=== PATIENT | female | born 1970 | race Caucasian/White ===

== ENCOUNTER 2024-05-31 05:16 | Observation (INO) ==
--- NOTE | 2024-05-09 14:01 | PAT Medication Instructions ---
Medication Instructions Date of Service May 09, 2024 Home Medications amlodipine 10 mg tablet (Norvasc) 10 mg PO QAM aripiprazole 30 mg tablet (Abilify) 30 mg PO QAM atorvastatin 10 mg tablet (Lipitor) 10 mg PO QAM buspirone 10 mg tablet 10 mg PO BID dextroamphetamine-amphetamine 10 mg tablet (Adderall) 10 mg PO QPM dextroamphetamine-amphetamine 20 mg tablet (Adderall) 20 mg PO QAM glipizide 5 mg tablet 5 mg PO TID hydroxyzine HCl 25 mg tablet 25 mg PO TID PRN Anxiety lamotrigine 150 mg tablet (Lamictal) 300 mg PO QAM ondansetron HCl 4 mg tablet 4 mg PO Q6H PRN Nausea pantoprazole 40 mg tablet,delayed release 40 mg PO QAM sertraline 100 mg tablet (Zoloft) 200 mg PO QAM DO NOT take the morning of surgery dextroamphetamine-amphetamine 20 mg tablet (Adderall) 20 mg PO QAM glipizide 5 mg tablet 5 mg PO TID hydroxyzine HCl 25 mg tablet 25 mg PO TID PRN Anxiety Take morning of surgery With a small sip of water, OTHERWISE NOTHING TO EAT OR DRINK AFTER MIDNIGHT: amlodipine 10 mg tablet (Norvasc) 10 mg PO QAM aripiprazole 30 mg tablet (Abilify) 30 mg PO QAM atorvastatin 10 mg tablet (Lipitor) 10 mg PO QAM buspirone 10 mg tablet 10 mg PO BID lamotrigine 150 mg tablet (Lamictal) 300 mg PO QAM ondansetron HCl 4 mg tablet 4 mg PO Q6H PRN Nausea (if needed) pantoprazole 40 mg tablet,delayed release 40 mg PO QAM sertraline 100 mg tablet (Zoloft) 200 mg PO QAM Take evening before surgery buspirone 10 mg tablet 10 mg PO BID dextroamphetamine-amphetamine 10 mg tablet (Adderall) 10 mg PO QPM glipizide 5 mg tablet 5 mg PO TID hydroxyzine HCl 25 mg tablet 25 mg PO TID PRN Anxiety (if needed) ondansetron HCl 4 mg tablet 4 mg PO Q6H PRN Nausea (if needed) Other Notes If you have any questions please call us at [phone] or [phone] or [phone] or [phone]
--- NOTE | 2024-05-13 14:05 | Anesthesiology Consultation ---
Date of Service May 13, 2024 Assessment & Plan (1) Encounter for pre-operative examination: Plan - medical clearance 05/17/24: "...repeat CBC and ordered UA both pending ...medically cleared...pending satisfactory repeat WBC. Ordered UA...05/18/24: "...CLEARED for orthopedic surgery...with UA neg. and is afebrile with no complaints of sickness..." Will request repeat UA and CBC for chart completion. - leukocytosis and thrombocytosis, case discussed in detail with Dr. Gonzalez who advised patient have medical clearance. PCP clearance already scheduled tomorrow 05/17/24, Dr. Marinelli [facility]. PAT testing to be faxed to PCP. - check BSG am DOS. Chart Review Chart Review: Pending: Refer to Additional Notes / Consult section and Patient seen in Pre Admission Testing Teaching & Discussion Pre-Anesthesia Teaching/Discussion Notes: Instructed NPO after midnight before surgery, except medications with 15 cc of water. Medication instructions provided according to the PAT guidelines. History Surgery Operation Date: 05/31/24 07:00 Proposed Procedures p Right Reverse Total Shoulder Arthroplasty with Distal Clavicle Excision - Rober Tommy Minaya MD Height/Weight Height: 5 ft 11.5 in Weight: 94.6 kg Allergies Allergy/AdvReac Type Severity Reaction Status Date / Time tramadol AdvReac Intermediate Nausea Verified 05/13/24 14:13 Medications Home Medications Medication Instructions Recorded Confirmed Last Taken amlodipine 10 mg tablet (Norvasc) 10 mg PO QAM 05/09/24 05/09/24 Unknown aripiprazole 30 mg tablet (Abilify) 30 mg PO QAM 05/09/24 05/09/24 Unknown atorvastatin 10 mg tablet (Lipitor) 10 mg PO QAM 05/09/24 05/09/24 Unknown buspirone 10 mg tablet 10 mg PO BID 05/09/24 05/09/24 Unknown dextroamphetamine-amphetamine 10 10 mg PO QPM 05/09/24 05/09/24 Unknown mg tablet (Adderall) dextroamphetamine-amphetamine 20 20 mg PO QAM 05/09/24 05/09/24 Unknown mg tablet (Adderall) glipizide 5 mg tablet 5 mg PO TID 05/09/24 05/09/24 Unknown hydroxyzine HCl 25 mg tablet 25 mg PO TID PRN Anxiety 05/09/24 05/09/24 Unknown lamotrigine 150 mg tablet 300 mg PO QAM 05/09/24 05/09/24 Unknown (Lamictal) ondansetron HCl 4 mg tablet 4 mg PO Q6H PRN Nausea 05/09/24 05/09/24 Unknown pantoprazole 40 mg tablet,delayed 40 mg PO QAM 05/09/24 05/09/24 Unknown release sertraline 100 mg tablet (Zoloft) 200 mg PO QAM 05/09/24 05/09/24 Unknown Past Medical History Medical History ADHD Diabetes mellitus, type 2 NIDDM History of anxiety History of coma ~2022, [facility], "in coma for 4 days due to blood sugar of ~1500, had collapsed in PCP office and taken to hospital," f/u [facility] endocrinology, dr. townsend History of depression Hx of gastric ulcer (~2022) reason for protonix, "thinks she has one, but not sure" Hx of gastroesophageal reflux (GERD) controlled, stable per pt Hx of renal calculi Hyperlipidemia Hypertension controlled, stable per pt Patient denies h/o stroke, seizures, heart attack, heart failure, blood clots/DVTs or blood transfusions. Exercise / Class Metabolic Activity III < 4 Walking/Shop/Light housework (denies chest discomfort or shortness of breath with usual activities, less than 8 steps in home) Past Surgical History Surgical History History of esophagogastroduodenoscopy (EGD) History of open reduction and internal fixation (ORIF) procedure left ankle>hardware removed Hx laparoscopic cholecystectomy Hx of colonoscopy Hx of hand surgery rt and lt. Hx of lithotripsy Hx of shoulder surgery right x2 Hx of tonsillectomy as child Hx of total hysterectomy with removal of both tubes and ovaries S/P hardware removal left ankle Past Anesthesia History No Family Hx of Anesthesia Complications and Other (emotional after anesthesia) History of PONV No Hx of Motion Sickness and History of PONV (denies needing scop patch) Social History Smoking Status: Current every day smoker (-advised) Smoking cigarettes per day: 10 Do You Dip or Chew Tobacco: No Hx Alcohol Use: Yes Alcohol type: wine alcohol intake frequency: holidays/special occasions only Hx Substance Use: Yes substance use type: former substance user and marijuana (-advised) Last Used Substance Other:: occasional use, last use 05/08/24 Review of Systems Snoring, denies witnessed apneas. Patient denies chest pain, shortness of breath, dyspnea on exertion, fever, chills, cough, wheezing, or palpitations. Physical Exam Vital Signs Vitals BP 150/83 P 85 TEMP 98.6 SP02 98% on RA RESP 18 Physical Patient resting comfortably in chair in no acute distress, alert and oriented, responding appropriately throughout visit Full cervical extension range of motion without pain TMD 3.5 finger breadths Mallampati Score 3 Dentition: upper plate, denies chipped or loose teeth, caps/crowns, implants or bridges Cardiac: regular rate and rhythm, no murmurs noted Carotid arteries: negative bruit bilat Lab Results Anesthesia Preop Results Results Anesthesia Widget: WBC 12.58 K/ul (4.8-10.8) H 05/13/24 Hgb 13.4 g/dl (12.0-16.0) 05/13/24 Hct 40.6 % (37.0-47.0) 05/13/24 Plt 454 K/uL (130-400) H 05/13/24 PT 10.5 Seconds (9.0-12.0) 05/13/24 PTT 29 Seconds (21-31) 05/13/24 INR 1.0 (0.9-1.1) 05/13/24 Blood Type A Positive 05/13/24 Antibody Screen NEGATIVE 05/13/24 Testing Laboratory Results 04/18/24 SODIUM: 136 POTASSIUM: 4.9 CHLORIDE: 101 CO2: 29 BUN: 16 CREATININE: 1.4 GLUCOSE: 159 Alk phos: 128 AST: 30 ALT: 38 A1c: 6.6% Electrocardiogram Date: 05/13/24 NSR, rate 79 bpm Nonspecific T wave abnormality Prolonged QT Chest X-Ray Date: 05/13/24 No acute cardiopulmonary disease.
[2024-05-31] MEDS: LACTATED RINGER'S 1,000 ML IV SCH (06:00)
[2024-05-31] MEDS: Scopolamine 1 MG TDSY TD SCH ×2 (06:21→12:42)
[2024-05-31] MEDS: ACETAMINOPHEN 500 MG TAB PO SCH ×3 (06:21→13:59)
[2024-05-31] MEDS: CeleBREX 200 MG CAP PO SCH ×2 (06:22→12:41)
[2024-05-31] MEDS ORDERED: BUPIVACAINE 0.5 % 5 MG/1 ML PF 10ML VIAL ONE (06:29)
[2024-05-31] MEDS ORDERED: fentaNYL citrate PF 100 MCG/2 ML VIAL IV PRN (06:34)
[2024-05-31] MEDS ORDERED: ONDANSETRON INJ 2 MG/ML 2 ML VIAL IV PRN ×2 (06:34→10:53)
[2024-05-31] MEDS ORDERED: ATROPINE SULFATE 0.1 MG/ML 10ML SYR IV PRN (06:34)
[2024-05-31] MEDS ORDERED: ePHEDrine sulfate 50 MG/ML AMP IV PRN (06:34)
--- NOTE | 2024-05-31 06:37 | History & Physical Bridge Note ---
Date of Service May 31, 2024 History & Physical Bridge Note I have examined the patient, reviewed the History & Physical and in the interval since the performance of the History & Physical I have noted the following changes of clinical significance: no changes noted
[2024-05-31] MEDS ORDERED: SUGAMMADEX SODIUM 200 MG/2 ML VIAL IV ONE (06:38)
[2024-05-31] MEDS ORDERED: fentaNYL citrate PF 100 MCG/2 ML VIAL ONE (06:38)
[2024-05-31] MEDS ORDERED: ONDANSETRON INJ 2 MG/ML 2 ML VIAL ONE (06:38)
[2024-05-31] MEDS ORDERED: MIDAZOLAM HCL 1 MG/ML 2ML VIAL ONE ×2 (06:38→07:13)
[2024-05-31] MEDS ORDERED: DEXAMETHASONE SOD INJ 4 MG/ML VIAL ONE (06:38)
[2024-05-31] MEDS ORDERED: ROCURONIUM BROMIDE 10 MG/ML 5 ML VIAL IV ONE ×2 (06:38→07:48)
[2024-05-31] MEDS ORDERED: PROPOFOL IV EMULSION 10 MG/ML 20 ML VIAL IV ONE (06:38)
[2024-05-31] MEDS: TRANEXAMIC ACID 1,000 MG **IV Pre-op IV SCH (06:50)
[2024-05-31] MEDS: ceFAZolin 2000MG 2,000 MG/15 ML SYR IV SCH ×2 (07:12→15:22)
[2024-05-31] MEDS ORDERED: KETAMINE HCL 10MG/ML SYR ONE (07:13)
[2024-05-31] MEDS ORDERED: PHENYLEPHRINE 100MCG/ML 5ML SYR ONE (07:40)
[2024-05-31] MEDS ORDERED: PHENYLEPHRINE HCL 10 MG/ML VIAL ONE (08:19)
[2024-05-31] MEDS: TRANEXAMIC ACID 1,000 MG **IV Intra-op IV SCH (10:37)
[2024-05-31] MEDS: ROPIV 0.5% 246mg, Ketorolac 30mg, EPINEPHrine 0.5mg in NSS INFIL SCH (10:37)
--- NOTE | 2024-05-31 10:42 | Post Operative Brief Note ---
Immediate Post Op Note Date of Surgery May 31, 2024 Pre & Post Diagnosis Operation Date: 05/31/24 07:00 Pre-Op Diagnosis: Osteoarthritis Right Shoulder Post-Op Diagnosis: Osteoarthritis Right Shoulder, Retained orthopedic hardware I identified the patient and participated in the time-out.: Yes Procedure Operation Date: 05/31/24 07:00 Actual Procedures p Right Reverse Total Shoulder Arthroplasty with Distal Clavicle Excision, removal of retained orthopedic hardware(Right) - Rober Minaya MD Surgeon Rober Minaya MD [place] Operator C DO Nitza Estimated Blood Loss 100 Findings Consistent with Post-Op Diagnosis Fluids 1000 cc Specimens Right Humeral Head & Distal clavicle Anesthesia Type General Regional Complications none
--- NOTE | 2024-05-31 10:43 | Operative Report ---
Post Operative Report Pre & Post Diagnosis Operation Date: 05/31/24 07:00 Pre-Op Diagnosis: Osteoarthritis Right Shoulder Post-Op Diagnosis: Osteoarthritis Right Shoulder, Retained orthopedic hardware I identified the patient and participated in the time-out.: Yes Procedure Operation Date: 05/31/24 07:00 Actual Procedures p Right Reverse Total Shoulder Arthroplasty with Distal Clavicle Excision, removal of retained orthopedic hardware(Right) - Rober Minaya MD Surgeon Rober Minaya MD Film Tests Checker Karlie Goddard DO Estimated Blood Loss 100 Findings See Below Shoulder ROM Pre-op: FF 160 deg; Abd 160 deg; ER 10 deg; IR 40 deg Posterior half supraspinatus & complete infraspinatus retracted rotator cuff with acetabulization of the humeral head. Humeral head was deformed, inferior osteophytes, loss of articular cartilage of humeral head and glenoid. LHB was degenerative and within the groove. Shoulder ROM Post-op: FF 155 deg; Abd 155 deg; ER 20 deg; IR 60 deg Fluids 1000 cc Specimens Right Humeral Head & Distal clavicle Anesthesia Type General Regional Complications none Indications Patient is a 53-year-old female who developed right shoulder rotator cuff arthropathy after failed rotator cuff repair with pain and decreased mobility. I recommended that she undergo a right shoulder Reverse TSA. The patient understands the risks of the operation including bleeding, infection, re-operati on, damage to nerves and arteries, continued shoulder pain, shoulder stiffness, infection, and/or loosening of the components which may require additional surgery. The patient also understands the risks of heart attack, stroke, pulmonary embolus, and . The patient wished to proceed and the consent form was signed. Description of Procedure IMPLANTS: Arthrex Univers Revers Modular Glenoid System 1) Humeral Stem 10 Univers Reverse [place] Stem, with size 33 Right Offset Suture Cup at 135. 2) Humeral Liner 33, + 3 mm. 3) Glenoid Modular Baseplate 24 mm +2 Lateralization & Central Screw 10 x 25 mm. 4) Glenosphere 33 mm + 4 offset/ 24 mm. 5) Glenoid Locking screw 5.5 x 36 mm x 2. PROCEDURE: The patient was taken to the Operating Room and placed in the beach-chair position after administration of an interscalene block and general anesthesia. 2 g of intravenous Ancef were administered. The right shoulder was then prepped and draped in the standard sterile fashion. Sequential compression devices were placed in the legs. TXA 1 g was given pre-op and a second dose was given before prepping the humeral shaft. The patient was identified and a multidisciplinary time-out identified the right shoulder as the correct shoulder and operative limb. First, the coracoid, acromion, clavicle, AC joint, and planned deltopectoral incision were marked. The incision was anesthetized with 30 cc of joint cocktail at the end of the case. Sharp dissection was carried down to the deltopectoral interval. The cephalic vein was identified and protected laterally as was the deltoid. The deltopectoral interval was dissected to expose the clavipectoral fascia which was then incised. Blunt dissect was used to separate the deltoid from the remaining rotator cuff. A self-retaining shoulder retractor was placed beneath the conjoined tendon and deltoid muscle, exposing the subscapularis tendon. The superior 1cm of the Pec major was released. The biceps tendon was identified in its groove and had degeneration it was tenodesed to the Pec major tendon with #1 Vicryl. The biceps tendon was unroofed from its groove, and the rotator interval was split to the base of the coracoid and the biceps was released from the glenoid. The subscapularis was released by peeling. Next, the humeral head was dislocated by adducting, extending, and externally rotation and the capsulotomy was carried down all the way around to the posterior aspect of the humeral head, taking care to stay on bone. Any humeral osteophytes anterior, inferiorly were removed with a rongeur to identify the medial calcar on the humeral neck. The humeral intramedullary entry point was entered posterior to the bicipital groove with a 2.4mm guide pin, followed by 6 mm drill, and then IM reamer. The resection guide was attached to the IM reamer and pinned to the humeral head with desired resection of 135. The IM reamer was removed and the humeral head was resected in the standard fashion. The resection protector was placed over the humeral surface. Our attention was drawn to the glenoid. The humerus was retracted and displaced posteriorly. The labrum was circumferentially removed as was the anterior capsule, which was carefully dissected free from the subscapularis tendon. The glenoid was exposed with 90 deg Keri retractor superiorly, Wolf retractor anteriorly, and Tornier retractor posteriorly. The glenoid was prepped with curettes to remove any remaining cartilage. Using the specific VIP patient specific glenoid aiming guide for a 24 mm baseplate was used to place the 2.8 mm guide wire. The glenoid surface was prepped for the baseplate with the glenoid reamer. The modular central screw was prepped with cannulated 10 mm drill, then tapped to a depth of 25 mm. The baseplate with central screw was screwed into place flush to the glenoid. The inferior screw hole was drilled first followed by the superior screw and a locking screws were placed. The glenosphere was inserted onto the baseplate and locked into place in the standard fashion. The humerus was dislocated and humeral broaches 6 through 10 were sequentially placed in the humeral shaft until excellent fit. The metallic screw from her previous rotator cuff repair had to be removed in order to properly prep the humerus. The A/P position of the broach was checked. The offset reamer guide was placed. The humeral cup reamer prepped the remainder of the humerus. The 10 stem was impacted into place with excellent purchase was achieved. The humeral trial liner 3 mm was placed. The shoulder was reduced with excellent fit and good stability of 1+ translation anteriorly and posteriorly. The shoulder ROM showed improved motion noted above. The definitive humeral liner was then placed. The subscapularis was repaired through drill holes and the suture cup. The rotator interval was closed with #1 Vicryl. The ROM and stability was unchanged. Our attention was drawn to the AC joint and the extended incision was carried down to the Superior AC joint ligament. A longitudinal incision was made in- line with the fibers of the superior AC joint ligament. The posterior and an terior aspect of the clavicle was exposed and using a sagittal saw the distal 8 mm was removed. A rasp was used to smooth out the edges. The wound was copiously irrigated. Bone wax was placed along the exposed bone. There was adequate space. The pulsatile lavage was used to copiously irrigate the wound throughout the case. The Superior AC joint ligament was closed with 0 Vicryl. The deltopectoral interval was re-approximated with #1-Vicryl, the subcutaneous tissue was closed with 3-0 Vircyl, and the skin was closed with ZipLine and Shield. The wounds were dressed with sterile gauze, ABD, and Tegaderm. The patient was then transferred to the PACU in stable condition after application of an abduction sling. POST-OP: The patient will be admitted for observation overnight. Patient will be seen by PT/OT prior to discharge. Pain medicine will be used as needed. Continue abduction sling 4 weeks. I attest to the content of the Intraoperative Record and any orders documented therein. Any exceptions are noted below.
[2024-05-31] MEDS ORDERED: bisacodyL 10 MG SUPP PR PRN (10:53)
[2024-05-31] MEDS ORDERED: MAGNESIUM HYDROXIDE SUSP 30 ML UDC PO PRN (10:53)
[2024-05-31] MEDS ORDERED: METOCLOPRAMIDE HCL INJ 5 MG/ML 2 ML VIAL IV PRN (10:53)
[2024-05-31] MEDS ORDERED: NALOXONE HCL 0.4 MG/1 ML VIAL/CARP IV PRN (10:53)
[2024-05-31] MEDS ORDERED: diphenhydrAMINE 50 MG/ML VIAL IV PRN (10:57)
[2024-05-31] MEDS ORDERED: traMADol HCL 50 MG TABLET PO PRN (10:57)
[2024-05-31] MEDS ORDERED: ALUMINUM/MAGNESIUM SUSP 30 ML UDC PO PRN (10:57)
[2024-05-31] MEDS ORDERED: HYDROmorphone INJ 0.5 MG/0.5 ML SYR IV PRN (10:57)
[2024-05-31] MEDS ORDERED: hydrOXYzine HCl 25 MG TAB PO PRN (11:00)
--- NOTE | 2024-05-31 11:34 | XRay Report ---
XR shoulder RT min 2V routine CLINICAL HISTORY: Post shoulder surgery COMPARISON: None FINDINGS: Right shoulder prosthesis shows no hardware complication. There is expected soft tissue ga s. IMPRESSION: Unremarkable postoperative exam. ACT 112: Negative or not required by law. Electronically signed by: Sanjay Pang M.D. 05/31/2024 11:33 AM
[2024-05-31] MEDS ORDERED: ONDANSETRON 4 MG OD TAB PO PRN (11:52)
[2024-05-31] MEDS: INSULIN HUMAN REGULAR PER UNIT 3 UNITS in SYRINGE 2.97 ML IV STA (12:03)
[2024-05-31] MEDS: BUPIVACAINE LIPOSOME 1.3% 133 MG/10 ML VIAL ONE (12:42)
[2024-05-31] MEDS ORDERED: PHARMACY GLYCEMIC MGMT CONSULT PRN (12:45)
[2024-05-31] MEDS: KETOROLAC TROMETHAMINE 15 MG/ML VIAL IV SCH (12:49)
[2024-05-31] MEDS ORDERED: CARBOHYDRATES FOR HYPOGLYCEMIA PO PRN (13:00)
[2024-05-31] MEDS ORDERED: GLUCAGON FOR INJ 1 MG VIAL SQ PRN (13:00)
[2024-05-31] MEDS ORDERED: GLUCOSE 40% GEL 15 GM TUBE PO PRN (13:00)
[2024-05-31] MEDS ORDERED: DEXTROSE 50% 50 ML SYRINGE IV PRN (13:00)
[2024-05-31] MEDS ORDERED: GLUCOSE 10 TAB/TUBE PO PRN (13:00)
--- NOTE | 2024-05-31 13:03 | Anesthesiology Progress Note ---
Date of Service May 31, 2024 Anesthesia Post Procedure Vital Signs Vital Signs: Temp Pulse Pulse Pulse Resp BP Pulse Ox 05/31/24 13:00 37.1 C 77 16 129/74 99 05/31/24 12:30 36.8 C 85 17 126/70 96 05/31/24 12:10 77 16 122/67 95 05/31/24 12:00 36.8 C 86 22 129/64 95 05/31/24 11:50 72 16 114/60 94 05/31/24 11:40 76 14 121/67 96 05/31/24 11:30 75 16 124/62 97 05/31/24 11:20 36.7 C 82 14 145/70 H 95 05/31/24 05:44 36.9 C 66 17 159/80 H 97 O2 Del Method O2 Flow Rate 05/31/24 13:00 Nasal Cannula 2 05/31/24 12:30 Nasal Cannula 2 05/31/24 12:10 Nasal Cannula 2 05/31/24 12:00 Nasal Cannula 2 05/31/24 11:50 Nasal Cannula 2 05/31/24 11:40 Oxymask 3 05/31/24 11:30 Oxymask 3 05/31/24 11:20 Oxymask 6 05/31/24 05:44 Room Air Pain Intensity Right Shoulder: Pain Intensity: 9 Transfer of Care Handoff Completed per policy Notes Mental Status: alert / awake / arousable Patient Amnestic to Procedure: Yes Nausea / Vomiting: adequately controlled Pain: adequately controlled Airway Patency, RR, SpO2: stable & adequate BP & HR: stable & adequate Hydration State: stable & adequate Anesthetic Complications: no major complications apparent and Pt Satisfied with anesthetic care
--- NOTE | 2024-05-31 13:10 | Pharmacy Report ---
Pharmacy Glycemic Short Note 2 - Date of Service May 31, 2024 - Glycemic Short BSG Results (Last 24 hours): 05/31/24 05/31/24 05/31/24 05:30 11:23 12:16 POC Glucose 150 H 254 H 244 H 05/31/24 12:43 POC Glucose 212 H OUTPATIENT ANTIDIABETIC REGIMEN: * Glipizide 5 mg PO TID HbA1c: * 6.6% (04/13/24) ASSESSMENT: * 53 yo F admitted on 05/31/24 postoperatively following a right total shoulder arthroplasty. Pharmacy has been consulted to assist with inpatient glycemic management. Patient is a Type 2 diabetic as an outpatient. Please refer to outpatient regimen and most recent HbA1c above. * Preop BSG was 150 mg/dL. Postop BSGs were 254-244 mg/dL. Anesthesiologist ordered a 3 unit IV insulin bolus given around noon. Patient did receive 4 mg of IV dexamethasone preop. No ongoing steroids ordered. T2DM diet ordered to start at lunch. * Will give ~0.2 unit/kg basal dose x 1 now. Reassess basal in the AM. Novolog will be ordered based on weight/stress of 3. PLAN FOR INPATIENT GLYCEMIC CONTROL: * Hold outpatient oral diabetes medications * Basal insulin * Lantus 20 units SC x 1 now * Bolus insulin * NovoLog per scale ACHS or Q6hrs while NPO * Goal Range: Low 110 mg/dL - High 140 mg/dL * Correction Factor: 15 mg/dL/unit * Nutritional / Prandial insulin per carb ratio of 1 unit per 5 grams CHO consumed
--- NOTE | 2024-05-31 13:15 | Hospitalist Consultation ---
Date of Consultation May 31, 2024 Assessment & Plan (1) Hyperglycemia due to type 2 diabetes mellitus: (2) Osteoarthritis: (3) Hypertension: Plan Patient is a 53-year-old female with a past medical history of right shoulder osteoarthritis, hypertension, anxiety, depression, bipolar disorder, hyperlipidemia, GERD, and type II DM. She had a right total shoulder arthroplasty 05/31/[address] Minaya. The hospitalist team was consulted for diabetes management as patient had a glucose level of 254 after her procedure. #type II DM with hyperglycemia Controlled on Ozempic, glipizide, and Lantus 15u qam at home; hold Ozempic and glipizide during inpatient stay patient reports most recent A1C 6.7; no PCP records on file post op hyperglycemia with glucose 254, now down to 212 Received 4 Mg IV dexamethasone, anticipate hyperglycemia through the evening Missed a.m. 15U Lantus 05/31 surgery team ordered 3U human regular insulin along with 20 Lantus - will recheck glucose SSI with target BSG range 110-140mg/dL, CF 15, carb ratio 5 continue home Lantus 15U every morning Surgery team placed pharmacy glycemic consult - will adjust above prn T2DM diet BSG ACHS if eating, q6h if npo #right shoulder osteoarthritis S/p right shoulder total arthroplasty 05/31/[address] Minaya Postop hypoxia resolved (suspect 2/2 anesthesia agents), oxygen titrated to room air on consult eval Pain management, VTE PPx, and bowel regimen per orthopedics team to receive 2 doses of Ancef pre-op H&H stable, EKG NSR check AM CBC and BMP PT/OT to eval Chronic stable diagnoses: anxiety/depression/bipolar disorder continue BuSpar, Abilify, Adderall, lamotrigine, sertraline, and hydroxyzine prn hyperlipidemia continue atorvastatin Hypertension continue amlodipine GERD continue PPI VTE ppx: TEDs Diet: T2DM Dispo: remain med surg status History of Present Illness Reason for Consultation: diabetes management Requesting Physician: Dr. Minaya Attending Physician: Rober Minaya MD History of Present Illness Patient is a 53-year-old female with a past medical history of right shoulder osteoarthritis, hypertension, anxiety, depression, bipolar disorder, hyperlipidemia, GERD, and type II DM. She had a right total shoulder arthroplasty 05/31/[address] Minaya. The hospitalist team was consulted for diabetes management as patient had a glucose level 254 after her procedure. Patient seen at bedside with her significant other present. She stated she is doing well postoperatively, denies nausea, dizziness, lightheadedness, chest pain, shortness of breath. She has urinated without difficulty after the procedure. She has not had a bowel movement yet. She stated her right arm and fingers are still numb however denies any pain. She was titrated off oxygen without difficulty postoperatively, she does not use any oxygen, CPAP, or BiPAP at home. Regarding her diabetes management, she is on Ozempic, glipizide, and Lantus 15 units every morning. She does not use any short acting insulin. She did not use her Lantus this morning prior to the procedure. She was found to have a glucose of 254, down to 212 during consult eval. Patient had 4 Mg of dexamethasone likely contributing to hyperglycemia along with missing her morning Lantus. Surgery team ordered 3 units human regular insulin along with 20 units Lantus. Patient stated she does have a history of diabetes induced coma, with glucose levels greater than 1000 several years ago. Her diabetes has been well-controlled since then, she stated her most recent A1c is 6.7%. Patient is planning for discharge tomorrow morning. Patient has a 40-year smoking history, half a pack per day. She denies need for nicotine patch. She does not drink alcohol often. She denies any history of seizure disorders. She uses lamotrigine for bipolar disorder. Her PCP is in [place], no records on file. Discussion with pharmacy staff, Will continue home Lantus 15 units every morning and they will adjust as needed 06/01. Allergies Allergy/AdvReac Type Severity Reaction Status Date / Time tramadol AdvReac Intermediate Nausea Verified 05/31/24 05:53 Home Medications Medication Instructions Recorded Confirmed Type amlodipine 10 mg tablet (Norvasc) 10 mg PO QAM 05/09/24 05/31/24 History aripiprazole 30 mg tablet (Abilify) 30 mg PO QAM 05/09/24 05/31/24 History atorvastatin 10 mg tablet (Lipitor) 10 mg PO QAM 05/09/24 05/31/24 History buspirone 10 mg tablet 10 mg PO BID 05/09/24 05/31/24 History dextroamphetamine-amphetamine 10 10 mg PO QPM 05/09/24 05/31/24 History mg tablet (Adderall) dextroamphetamine-amphetamine 20 20 mg PO QAM 05/09/24 05/31/24 History mg tablet (Adderall) glipizide 5 mg tablet 5 mg PO TID 05/09/24 05/31/24 History hydroxyzine HCl 25 mg tablet 25 mg PO TID PRN Anxiety 05/09/24 05/31/24 History lamotrigine 150 mg tablet 300 mg PO QAM 05/09/24 05/31/24 History (Lamictal) ondansetron HCl 4 mg tablet 4 mg PO Q6H PRN Nausea 05/09/24 05/31/24 History pantoprazole 40 mg tablet,delayed 40 mg PO QAM 05/09/24 05/31/24 History release sertraline 100 mg tablet (Zoloft) 200 mg PO QAM 05/09/24 05/31/24 History Patient History Medical History ADHD Diabetes mellitus, type 2 NIDDM History of anxiety History of coma ~2022, ph candelariadon, "in coma for 4 days due to blood sugar of ~1500, had collapsed in PCP office and taken to hospital," f[facility]u [facility] endocrinology, dr. townsend History of depression Hx of gastric ulcer (~2022) reason for protonix, "thinks she has one, but not sure" Hx of gastroesophageal reflux (GERD) controlled, stable per pt Hx of renal calculi Hyperlipidemia Hypertension controlled, stable per pt Surgical History History of esophagogastroduodenoscopy (EGD) History of open reduction and internal fixation (ORIF) procedure left ankle>hardware removed Hx laparoscopic cholecystectomy Hx of colonoscopy Hx of hand surgery rt and lt. Hx of lithotripsy Hx of shoulder surgery right x2 Hx of tonsillectomy as child Hx of total hysterectomy with removal of both tubes and ovaries S/P hardware removal left ankle Social History Smoking Status: Current every day smoker (-advised) Tobacco Type: Cigarettes Cigarettes Per Day: 10; Second Hand Exposure: Yes (hx); Do You Dip or Chew Tobacco: No; Tobacco Cessation Education Requested by Patient: No Hx Alcohol Use: Yes Alcohol type: wine Hx Substance Use: Yes Last Used Substance Other:: occasional use, last use 05/08/24 Preferred Language: Khmer Communication Ability: Effective Parts Back Counter Man Required: No Beliefs That Will Affect Care: None Current Living Situation: Significant Other Other Information That Helps Us Care for You: No Feels Safe at Home: Yes Safety Concerns: Feels Safe At This Time Assistive Devices: Denture - Upper and Glasses Review of Systems Review of Systems: See HPI Physical Exam Physical Exam: The patient is awake, alert and oriented 3, well developed and well nourished, normocephalic and atraumatic, in no acute distress. Non-toxic appearing. HEENT- EOMI, mucous membranes moist. Hearing grossly intact. Heart-normal S1 and S2. No murmurs, rubs or gallops. Lungs-clear bilaterally, no respiratory distress, no accessory muscle use. Abdomen-normal bowel sounds and soft. No ascites noted. Non-tender. Extremities- no clubbing, cyanosis, or edema. right upper extremity in sling. Psychiatric-normal affect. Results & Data Results & Data Vital Signs (Past 12 Hours) Vital Signs Temp Pulse Pulse Pulse Resp BP Pulse Ox 05/31/24 13:00 37.1 C 77 16 129/74 99 05/31/24 12:30 36.8 C 85 17 126/70 96 05/31/24 12:10 77 16 122/67 95 05/31/24 12:00 36.8 C 86 22 129/64 95 05/31/24 11:50 72 16 114/60 94 05/31/24 11:40 76 14 121/67 96 05/31/24 11:30 75 16 124/62 97 05/31/24 11:20 36.7 C 82 14 145/70 H 95 05/31/24 05:44 36.9 C 66 17 159/80 H 97 O2 Del Method O2 Flow Rate 05/31/24 13:00 Nasal Cannula 2 05/31/24 12:30 Nasal Cannula 2 05/31/24 12:10 Nasal Cannula 2 05/31/24 12:00 Nasal Cannula 2 05/31/24 11:50 Nasal Cannula 2 05/31/24 11:40 Oxymask 3 03/04/25 11:30 Oxymask 3 05/31/24 11:20 Oxymask 6 05/31/24 05:44 Room Air Laboratory Results Reviewed glucose levels PG Care Time/CCT Total # of Minutes Spent Total Time Spent with Patient: Total time spent is greater than 50% in coordination of care (as documented) at patient's floor/unit and/or counseling patient: Coding Level of Care Code 85398 IN/OBS CONSULT LVL 5,80M Diagnoses Hyperglycemia due to type 2 diabetes mellitus E11.65 Osteoarthritis M19.90 Hypertension I10 Comment Discussion with patient and patient's family, along with pharmacy staff
[2024-05-31] MEDS: DEXTROAMPHETAMINE/AMPHETAMINE IR 10 MG TAB PO SCH (13:38)
[2024-05-31] MEDS: INSULIN ASPART PER UNIT CHARGE SC SCH (13:38)
[2024-05-31] MEDS: LANTUS PER UNIT CHARGE SC STA (13:39)
[2024-05-31] MEDS ORDERED: glipiZIDE 5 MG TAB PO SCH (14:00)
[2024-05-31] MEDS: Scopolamine CHECK PATCH PLACEMENT SCH (15:22)
--- NOTE | 2024-05-31 16:30 | Operative Report ---
Post Operative Report Pre & Post Diagnosis Operation Date: 05/31/24 07:00 Pre-Op Diagnosis: Osteoarthritis Right Shoulder Post-Op Diagnosis: Osteoarthritis Right Shoulder, Retained orthopedic hardware I identified the patient and participated in the time-out.: Yes Procedure Operation Date: 05/31/24 07:00 Actual Procedures p Right Reverse Total Shoulder Arthroplasty with Distal Clavicle Excision, (Right) - Rober Minaya MD s removal of retained orthopedic hardware(Right) - Rober Minaya MD Surgeon Rober Minaya MD In Processing Instructor Karlie Goddard DO Estimated Blood Loss 100 Findings Consistent with Post-Op Diagnosis Specimens Right humeral head and distal clavicle Description of Procedure The patient was brought to the operative suite where she underwent anesthesia. She was placed in the beachchair position. Right upper extremity was prepped and draped in the usual sterile fashion. Surgical timeout was performed. The patient underwent a right reverse total shoulder arthroplasty with distal clavicle excision and removal of hardware. Please see Dr. Minaya's operative report for full details. I was present and assisted with patient positioning, limb positioning, surgical approach, soft tissue retraction, hemostasis, hardware placement, wound closure, postoperative dressing placement. The patient was awakened taken to the recovery room in stable condition. I attest to the content of the Intraoperative Record and any orders documented therein. Any exceptions are noted below.
--- NOTE | 2024-05-31 17:44 | Orthopedic Progress Note ---
Date of Service May 31, 2024 Assessment & Plan (1) Rotator cuff arthropathy of right shoulder: Plan: POD #0 s/p R shoulder Rev TSA & distal clavicle excision, doing as well as expected. Resume diet. WBAT. No heavy lifting R arm Sling with Abduction pillow 4 weeks OOB to chair. Continue pain control. Check labs tomorrow. DVT prophylaxis: TEDs 3 weeks, foot pumps while in hospital, ASA 81 mg BID for 3 weeks. PT/OT. Hospitalist consult medical management D/C planning. Dressing to be changed to Silverlon type dressing when dry. Admission and Anticipated Discharge Date Admission Date: May 31, 2024 Subjective No pain, tired. Physical Exam Physical Exam: RUE: BCR < 2 sec. Sensation to light touch tingling. Motor absent. Dressing is clean, dry, intact. Results & Data Vital Signs (Past 12 Hours) Vital Signs Temp Pulse Pulse Pulse Pulse Resp BP 05/31/24 15:23 36.5 C 71 68 18 141/80 H 05/31/24 14:30 36.5 C 73 16 136/73 05/31/24 13:32 36.7 C 73 15 125/70 05/31/24 13:00 37.1 C 77 16 129/74 05/31/24 12:30 36.8 C 85 17 126/70 05/31/24 12:10 77 16 122/67 05/31/24 12:00 36.8 C 86 22 129/64 05/31/24 11:50 72 16 114/60 05/31/24 11:40 76 14 121/67 05/31/24 11:30 75 16 124/62 05/31/24 11:20 36.7 C 82 14 145/70 H 05/31/24 05:44 36.9 C 66 17 159/80 H Pulse Ox O2 Del Method O2 Flow Rate 05/31/24 15:23 97 Room Air 05/31/24 14:30 95 Room Air 05/31/24 13:32 95 Room Air 05/31/24 13:00 99 Nasal Cannula 2 05/31/24 12:30 96 Nasal Cannula 2 05/31/24 12:10 95 Nasal Cannula 2 05/31/24 12:00 95 Nasal Cannula 2 05/31/24 11:50 94 Nasal Cannula 2 05/31/24 11:40 96 Oxymask 3 05/31/24 11:30 97 Oxymask 3 05/31/24 11:20 95 Oxymask 6 05/31/24 05:44 97 Room Air Laboratory Results Laboratory Results POC Glucose 123 mg/dl (70-99) H 05/31/24 16:32 Impressions Shoulder X-Ray 05/31/24 10:57 XR shoulder RT min 2V routine CLINICAL HISTORY: Post shoulder surgery COMPARISON: None FINDINGS: Right shoulder prosthesis shows no hardware complication. There is expected soft tissue gas. IMPRESSION: Unremarkable postoperative exam. ACT 112: Negative or not required by law. Electronically signed by: Sanjay Pang M.D. 05/31/2024 11:33 AM
[2024-05-31] MEDS: busPIRone 5 MG TAB PO SCH (20:03)
[2024-05-31] MEDS: DOCUSATE SODIUM 100 MG CAP PO SCH (20:03)
[2024-05-31] MEDS: SENNA 8.6 MG TAB PO SCH (20:03)
[2024-06-01] MEDS: oxyCODONE HCL IR 5 MG TAB (IMMEDIATE RELEASE) PO PRN (02:46)
[2024-06-01 05:57] LABS: Basophils # (auto) 0.04 K/uL (0.00-0.20); Basophils % (auto) 0.3 %; Eosinophils # (auto) 0.14 K/uL (0.00-0.50); Hematocrit (blood only) 32.6 % (37.0-47.0); Hemoglobin 10.6 g/dl (12.0-16.0); Immature Granulocytes # (auto) 0.04 K/uL (0.01-0.20); Immature Granulocytes % (auto) 0.3 %; Lymphocytes # (auto) 3.71 K/uL (1.20-3.40); Lymphocytes % (auto) 25.6 %; Mean Corpuscular Hemoglobin 26.7 pg (25.0-34.0); Mean Corpuscular Hgb Conc 32.5 g/dL (32.0-36.0); Mean Corpuscular Volume 82.1 fL (80.0-100.0); Mean Platelet Volume 8.8 fL (9.4-12.4); Monocytes # (auto) 0.66 K/uL (0.11-0.59); Monocytes % (auto) 4.6 %; Neutrophils # (auto) 9.88 K/uL (1.40-6.50); Neutrophils % (auto) 68.2 %; Platelet Count 328 K/uL (130-400); RDW Coefficient of Variation 15.7 % (11.5-14.5); RDW Standard Deviation 46.8 fL (36.4-46.3); Red Blood Count 3.97 M/uL (4.20-5.40); White Blood Count 14.47 K/ul (4.8-10.8)
[2024-06-01] MEDS ORDERED: LR 60ML/HR IV SCH (06:00)
[2024-06-01] MEDS ORDERED: ROPIV 0.5% 246mg, Ketorolac 30mg, EPINEPHrine 0.5mg in NSS INFIL SCH (06:00)
[2024-06-01] MEDS ORDERED: ceFAZolin 2000MG 2,000 MG/15 ML SYR IV SCH (06:00)
[2024-06-01] MEDS ORDERED: TRANEXAMIC ACID 1,000 MG **IV Intra-op IV SCH (06:00)
[2024-06-01] MEDS ORDERED: TRANEXAMIC ACID 1,000 MG **IV Pre-op IV SCH (06:00)
[2024-06-01 06:16] LABS: BUN Creatinine Ratio 15.5 (10-20); Creatinine Clr Calc Pharmacy 48.9 ml/min; Potassium 4.8 mmol/L (3.5-5.1)
--- NOTE | 2024-06-01 07:45 | Hospitalist Progress Note ---
Date of Service June 01, 2024 Assessment & Plan (1) Rotator cuff arthropathy of right shoulder: (2) Hyperglycemia due to type 2 diabetes mellitus: (3) Osteoarthritis: (4) Hypertension: (5) S/P shoulder replacement: Plan Patient is a 53-year-old female with a past medical history of right shoulder osteoarthritis, hypertension, anxiety, depression, bipolar disorder, hyperlipidemia, GERD, and type II DM. She had a right total shoulder arthroplasty 05/31/[address] Minaya. The hospitalist team was consulted for diabetes management as patient had a glucose level of 254 after her procedure. #right shoulder osteoarthritis S/p right shoulder total arthroplasty 05/31/[address] Minaya. EBL 100cc -Postop hypoxia resolved (suspect 2/2 anesthesia agents), on RA, 97% no SOB Pain management, VTE PPx, and bowel regimen per orthopedics team Ancef marc-operative abx. EKG NSR. PT/OT evals ordered WBC elevation suspected from steroids, was elevated pre-op Hgb 13.4--> 10.6, acute blood loss anemia and some dilutional aspect from surgery BUN/Cr 26/1.68 however no recent comparison however note labs from March w/ Cr 1.4. UA pre-op 05/18 noted trace protein. ?benefit from JOSIE in f/u PCP if has microalbuminuria Making good urine/no symptoms and should push PO fluids/follow up with PCP. No SOB/CP and BP stable 146/82 #type II DM with hyperglycemia Controlled on Ozempic, glipizide, and Lantus 15u qam at home; A1c 6.7 per patient. -hold Ozempic and glipizide during inpatient stay Pharmacy consulted pharmacy for glycemic and BSGs acceptable. Can resume home regimen at [place] (exception ozempic rec to hold until moving bowels) Chronic stable diagnoses: anxiety/depression/bipolar disorder continue BuSpar, Abilify, Adderall, lamotrigine, sertraline, and hydroxyzine prn hyperlipidemia continue atorvastatin Hypertension continue amlodipine GERD continue PPI SNORING: Consider outpatient sleep study at convenience/follow up discussion w/ PCP VTE ppx: TEDs, ASA 81mg BID has been ordered by primary service Dispo: plan for la today per primary service. Thank you for allowing hospitalist service to participate in the care of Ms Chavez. Hospitalist will sign off at this time. Please call with any questions/concerns. Admission and Anticipated Discharge Date Admission Date: May 31, 2024 Supervising Physician Co-Signing Physician Notes The patient was not seen by me. The chart was reviewed. Case discussed with YISEL Naranjo. Agree with assessment and plan Subjective Eval this morning. walking with therapy. pain controlled with ordered medications. sensation to hand returning, in sling, using squeeze ball, sensation/pulse present. Waiting on ride and anticipates dc today. No fever/chills, CP/SOB, making good urine/no symptoms and encouraged to continue to push oral fluids/hydration given kidney function. Discussed snoring, significant other arrived/confirmed -- rec PCP discussion for outpatient sleep study. Questions/concerns addressed ,stable for dc. Physical Exam 2 Physical Exam: 53yo obese female walking halls initiall y with therapy, NAD Head atraumatic, normocephalic, mmm, trachea midline, +thick neck Resp: even/unlabored, no w/c/r, 97% on RA CV: RRR, no significant m/r/g, no pitting edema GI: +BS, slightl distenstion/obese but soft/nontender no murphy MSK/Neuro: sling to RUE- dressing/Silverlon to RIGHT shoulder, intact, some blood underneath dressing but no bleeding through, no cellulitis/erythema, or significant hematoma. pulses present, ROM improved and sensation returning Psych: AOx3, cooperative with exam Results & Data Results & Data Vital Signs (Past 12 Hours) Vital Signs Temp Pulse Resp BP Pulse Ox O2 Del Method 06/01/24 02:43 36.6 C 70 18 145/77 H 96 Room Air 05/31/24 22:33 37.0 C 73 16 158/80 H 94 Room Air Laboratory Results 06/01/24 05:38 06/01/24 05:38 Diagnostic Findings Shoulder X-Ray 05/31/24 10:57 XR shoulder RT min 2V routine CLINICAL HISTORY: Post shoulder surgery COMPARISON: None FINDINGS: Right shoulder prosthesis shows no hardware complication. There is expected soft tissue gas. IMPRESSION: Unremarkable postoperative exam. ACT 112: Negative or not required by law. Electronically signed by: Sanjay Pang M.D. 05/31/2024 11:33 AM PG Care Time/CCT Total # of Minutes Spent Total Time Spent with Patient: Total time spent is greater than 50% in coordination of care (as documented) at patient's floor/unit and/or counseling patient: Coding Level of Care Code 94792 SUB INP/OBS CARE 2/35MIN Diagnoses Rotator cuff arthropathy of right shoulder M12.811 Hyperglycemia due to type 2 diabetes mellitus E11.65 Osteoarthritis M19.90 Hypertension I10 S/P shoulder replacement Z96.619
[2024-06-01] MEDS: ASPIRIN 81 MG ECTAB PO SCH (08:02)
[2024-06-01] MEDS: PANTOprazole 40 MG TAB PO SCH (08:02)
[2024-06-01] MEDS: SERTRALINE HCL 100 MG TABLET PO SCH (08:03)
[2024-06-01] MEDS: amLODIPine BESYLATE 5 MG TAB PO SCH (08:03)
[2024-06-01] MEDS: lamoTRIgine 100 MG TAB PO SCH (08:03)
[2024-06-01] MEDS: ARIPiprazole 15 MG TAB PO SCH (08:04)
[2024-06-01] MEDS: MULTIVITAMIN TAB PO SCH (08:04)
[2024-06-01] MEDS: LANTUS PER UNIT CHARGE SQ SCH (08:05)
[2024-06-01] MEDS: ATORVASTATIN 10 MG TAB PO SCH (08:05)
[2024-06-01] MEDS: DEXTROAMPHETAMINE/AMPHETAMINE IR 10 MG TAB PO SCH (08:10)
[2024-06-01] MEDS ORDERED: LANTUS PER UNIT CHARGE SQ SCH (09:00)
--- NOTE | 2024-06-01 10:49 | Orthopedic Progress Note ---
Date of Service June 01, 2024 Assessment & Plan (1) S/P shoulder replacement: Plan: Postop day #1 status post right reverse total shoulder arthroplasty with Dr. Minaya. Pain is well-controlled. Denies any concerning symptoms. Nerve block has worn off for the most part. Her vital signs have remained stable. Dressing was taken down today and there was no active drainage. Incision is clean, dry, intact with no evidence of infection or dehiscence. Silverlon dressing was applied. Wound care instructions reviewed including bathing as long as the dressing is intact. Postop labs show a white blood cell count of 14.47 likely secondary to surgery. She seems to run slightly high. Hemoglobin 10.6, mild anemia likely secondary to acute blood loss from surgery. Creatinine 1.68 from baseline 1.4. Electrolytes are stable. Postoperative x-ray demonstrated expected findings. Patient was evaluated by PT and OT and cleared to be discharged home. Patient is comfortable with this plan. She has physical therapy starting next week with [facility]. They have our PT protocol, confirmed bu our lining caser. Pain control will include scheduled Tylenol, prescription Celebrex 200 mg twice daily over the next 2 weeks with possible refill if needed, and oxycodone on as- needed basis for breakthrough pain. Her creatinine clearance does not warrant any alteration to the Celebrex dosing. Patient will also take aspirin 81 mg twice daily for DVT prophylaxis x 6 weeks She was recommended to take iron and vitamin C over the next 2 weeks to supplement for acute blood loss and to promote healing. She has an appointment scheduled in 2 weeks with our office. She requested the appointment be changed to an earlier time. This was communicated with our office staff, and they left a voicemail for her to call the office to reschedule the time. This was conveyed to her. (2) Rotator cuff arthropathy of right shoulder: Admission and Anticipated Discharge Date Admission Date: May 31, 2024 Azeb Payton was seen in bed today. She is hopeful to be discharged home today. Her pain is well-controlled. She has no numbness or tingling in her fingers, feels that the block has worn off for the most part at this point. She denies any nausea, vomiting, chest pain, or shortness of breath. She has not participated with PT or OT yet. Physical Exam Constitutional: Sitting upright in bed. Resting comfortably in no distress. Cardiovascular: Right radial pulse 2+ Musculoskeletal: Right upper extremity: Sling is in place with abduction pillow properly positioned. No drainage visualized through the dressing. Dressing was taken down. Scant dried blood present on the inside of the dressing. Vertical inci roberta over the anterior shoulder is clean, dry, and intact with no drainage. There is no surrounding erythema. There is some dependent ecchymosis along the inferior aspect of the incision with some tenderness in this area. Motor function with resisted thumb extension, resisted finger abduction, wrist extension, and ability to oppose thumb to little finger is intact. Skin: Pain, warm, dry Neurologic: No sensory deficits in bilateral fingers to light touch Results & Data Vital Signs (Past 12 Hours) Vital Signs Temp Pulse Pulse Pulse Pulse Resp BP 06/01/24 10:19 98.1 F 71 78 70 73 18 146/82 H 06/01/24 07:56 98.1 F 78 18 146/82 H 06/01/24 02:43 97.9 F 70 18 145/77 H Pulse Ox O2 Del Method 06/01/24 10:19 97 06/01/24 07:56 97 Room Air 06/01/24 02:43 96 Room Air Laboratory Results 06/01/24 06/01/24 05/31/24 07:25 05:38 20:37 WBC 14.47 H RBC 3.97 L Hgb 10.6 L Hct 32.6 L MCV 82.1 MCH 26.7 MCHC 32.5 RDW Std Deviation 46.8 H RDW Coeff of Neeru 15.7 H Plt Count 328 MPV 8.8 L Immature Gran % (Auto) 0.3 Neut % (Auto) 68.2 Lymph % (Auto) 25.6 [place] % (Auto) 4.6 Eos % (Auto) 1.0 Baso % (Auto) 0.3 Neut # (Auto) 9.88 H Lymph # (Auto) 3.71 H [place] # (Auto) 0.66 H Eos # (Auto) 0.14 Baso # (Auto) 0.04 Immature Gran # (Auto) 0.04 Sodium 138 Potassium 4.8 Chloride 107 Carbon Dioxide 24 Anion Gap 7 BUN 26 H Creatinine 1.68 H Est Cr Clr Drug Dosing 48.9 eGFR 35.92 BUN/Creatinine Ratio 15.5 Glucose 123 H POC Glucose 140 H 76 Calcium 9.0 05/31/24 05/31/24 05/31/24 16:32 12:43 12:16 WBC RBC Hgb Hct MCV MCH MCHC RDW Std Deviation RDW Coeff of [place]eru Plt Count MPV Immature Gran % (Auto) Neut % (Auto) Lymph % (Auto) [place] % (Auto) Eos % (Auto) Baso % (Auto) Neut # (Auto) Lymph # (Auto) [place] # (Auto) Eos # (Auto) Baso # (Auto) Immature Gran # (Auto) Sodium Potassium Chloride Carbon Dioxide Anion Gap BUN Creatinine Est Cr Clr Drug Dosing eGFR BUN/Creatinine Ratio Glucose POC Glucose 123 H 212 H 244 H Calcium 05/31/24 11:23 WBC RBC Hgb Hct MCV MCH MCHC RDW Std Deviation RDW Coeff of [place]eru Plt Count MPV Immature Gran % (Auto) Neut % (Auto) Lymph % (Auto) [place] % (Auto) Eos % (Auto) Baso % (Auto) Neut # (Auto) Lymph # (Auto) [place] # (Auto) Eos # (Auto) Baso # (Auto) Immature Gran # (Auto) Sodium Potassium Chloride Carbon Dioxide Anion Gap BUN Creatinine Est Cr Clr Drug Dosing eGFR BUN/Creatinine Ratio Glucose POC Glucose 254 H Calcium Diagnostic Findings Shoulder X-Ray 05/31/24 10:57 XR shoulder RT min 2V routine CLINICAL HISTORY: Post shoulder surgery COMPARISON: None FINDINGS: Right shoulder prosthesis shows no hardware complication. There is expected soft tissue gas. IMPRESSION: Unremarkable postoperative exam. ACT 112: Negative or not required by law. Electronically signed by: Sanjay Pang M.D. 05/31/2024 11:33 AM (1) S/P shoulder replacement Laterality: right Qualified Code(s): Z96.611 - Presence of right artificial shoulder joint
--- NOTE | 2024-06-01 11:00 | Discharge Summary ---
Date of Service June 01, 2024 Principal Diagnosis s/p right reverse total shoulder arthroplasty with distal clavicle excision, removal of retained orthopedic hardware Discharge Data Allergies Allergy/AdvReac Type Severity Reaction Status Date / Time tramadol AdvReac Intermediate Nausea Verified 05/31/24 05:53 Procedures Performed Operation Date: 05/31/24 07:00 Actual Procedures p Right Reverse Total Shoulder Arthroplasty with Distal Clavicle Excision, (Right) - Rober Minaya MD s removal of retained orthopedic hardware(Right) - Rober Minaya MD Hospital Course (1) S/P shoulder replacement: Patient underwent a right reverse total shoulder arthroplasty with distal clavicle excision, removal of retained orthopedic hardware with Dr. Minaya on 05/31/2024. She was observed in the hospital overnight and his pain was managed. She received 24 hours of antibiotic coverage with Ancef. She did not have any adverse events and his vital signs remained stable. Her postoperative x-rays demonstrated expected findings. Postop labs show a white blood cell count of 14.47 likely secondary to surgery and steroids. She seems to run slightly high. Hemoglobin 10.6, mild anemia likely secondary to acute blood loss from surgery. Creatinine 1.68 from baseline 1.4. Electrolytes are stable. She was evaluated by PT and OT on 06/01/2024 and was cleared for discharge. Her bulky dressing was taken down and surgical incision did not show any evidence of dehiscence or drainage and a Silverlon dressing was applied. Wound care instructions reviewed. Hospitalist service was consulted routinely to manage based on her medical conditions. She was cleared for discharge by them. They recommended she follow up with PCP to discuss snoring for outpatient sleep study, and also recommended that she follow up with PCP due to creatinine levels and trace protein in urine. May benefit from JOSIE if she has microalbuminuria. Recommended increase fluids. Her Ozempic and glipizide was held during her inpatient stay. Her BSG's were acceptable and she can resume her home regimen at discharge with the exception of holding Ozempic until she is moving bowels. Patient will be discharged from the hospital today. She is scheduled for physical therapy with [facility] to begin next week. They have our protocol. Outpatient pain control will include scheduled Tylenol, Celebrex for 2 weeks, and oxycodone for breakthrough pain. Based on her creatinine clearance there are no necessary changes to the Celebrex dosing. Aspirin will be utilized for DVT prophylaxis for 6 weeks. ROSENDA stockings for 3 weeks. She will take iron and vitamin C over the next 2 weeks to promote healing and supplement blood loss from surgery. She will remain nonweightbearing with the right upper extremity. Remain in the brace for the next 4 weeks. She was instructed to contact the office with any questions or concerns. Her next follow-up appointment is scheduled in our office 2 weeks from now. She asked that this be changed to an earlier timeframe and this was communicated with our office who left a message for her to contact the office once she is home to reschedule this. (2) Rotator cuff arthropathy of right shoulder: Total Time Total Time Spent Total Time Spent (In Minutes): 30 Discharge Plan Discharge Items Patient Disposition: Home - Self-Care Reason For Visit: Right Shoulder Rotator Cuff Arthropathy Discharge Diagnosis: s/p right reverse total shoulder arthroplasty Activity: Per Instructions section Non-emergency contact: Surgeon Call non-emergency contact if: you have a fever, your wound has increased redness, your wound has increased drainage and your wound pain has increased Follow-up/Referrals: Doc Marinelli DO [Primary Care Provider] - 06/14/24 7:40 am Starr Foster PA-C [Physician Hydraulic Rockbreaker Operator] - 06/13/24 1:00 pm Diet: Carb Consistent or DM2 Addtl Attending Provider Instructions: POST OPERATIVE DISCHARGE INSTRUCTIONS Pain Control Please take the follow medications for pain control, as well as icing and elevating your operative extremity. Pain after surgery is to be expected. We may not be able to take away all of your pain, but the goal is to make your pain manageable - Extra strength Tylenol 1,000mg (2 tabs) every 8 hours - Celebrex 200mg twice a day for two weeks - Oxycodone as prescribed for breakthrough pain DVT Prophylaxis With any surgery, you are at increased risk for blood clots. Please take the follow measures to prevent blood clots and read the warning signs to watch for. Please take the follow anticoagulant:Aspirin 81 mg twice daily for 6 weeks If you were given ROSENDA compression stockings, these are to be worn on both legs for 18-20 hours daily for 2 weeks, or for 3 weeks for any lower extremity surgery. Warning signs: Calf pain, lower extremity swelling, numbness/tingling, skin di scoloration, increased pain, shortness of breath, chest pain. Please contact our office if you experience any of these symptoms or call 911 if you are having trouble breathing. Ice Ice your operative site at least 5 times a day for 15-30 minutes at a time, for the first three days, then as needed. This will help to reduce swelling and pain. Make sure you have a thin cloth between the ice or cooling unit and your skin to prevent carter bite. This is especially important if you received a nerve block. Diet/Nausea/Vomiting Start by drinking clear liquids and eating crackers. If you can tolerate this, then you may resume your normal diet. If you feel nauseated or vomit, take Zofran/ondansetron (if prescribed). Please call our office if you have intractable nausea or vomiting, or, if after hours, you may go to the Emergency Room for help. Surgical Dressing Please leave on any dressing until you are seen by either PT or PA for your post-operative appointment, unless you are otherwise instructed. If there are any issues with your dressing please give our office a call. Weight bearing, Range of Motion, Activity You will be nonweightbearing on your operative site. Physical therapy You will do PT through [facility]. You are scheduled for this. They have your protocol. Wound care and showering It is normal to see some dried blood on the dressing. Do not remove your dressing, paper strips or sutures yourself unless otherwise instructed. Showering is allowed post op day 3. You can shower with this on as long as all the edges are in tact. To promote wound healing, we recommend taking a multi-vitamin, or taking 500mg Vitamin C supplement twice a day for two weeks and 325mg Iron supplement twice a day for two weeks. This is especially important if you had a total joint replacement. Constipation Constipation is a common side effect of narcotic pain medication, dehydration after surgery and iron supplement (if you were instructed to begin that after surgery). We recommend purchasing an uirn-fte-iqjidac laxative such as Milk of Magnesia, Colace, Dulcolax, Miralax or Senna from a local pharmacy, and taking it as instructed. Stay hydrated and you may increase your fiber in your diet as well. Call our clinic if any questions. Driving You may not drive while taking narcotic pain medication or while in a cast, splint, sling or brace. Driving will be discussed at your first post op appointment Return to Work Your return to work depends on what surgery was done and what type of work you do. Please bring any paperwork your employer needs completed to your first post-operative visit. Also, bring a description of your job duties, as this helps us to understand what risks you may face at work. Travel Avoid long distance travel (greater than 1 hour) in airplanes and cars for the first 6 weeks after surgery. Follow-up Please attend your post operative appointments as scheduled. You will need to call the office at [phone] to re-schedule your 2 week follow up appointment. We will contact you to adjust your 2 week follow up appointment. Your appointment for tomorrow was cancelled as we changed your dressing in the hospital today. We will change your dressing and remove your zipline at your 2 week follow up appointment. If you do not know your post operative appointment dates or times please call the office at [phone] When to call the office It is normal to have swelling and bruising in the limb that was operated on. This will improve with time. It is also normal to have fevers for the first 2 days after surgery. Reasons you should call your doctor include: Uncontrolled pain; Nausea, vomiting, or constipation that does not improve with medication; Fevers over 101.5, chills, sweats; Drainage or bleeding from the wound; Foul odor; Spreading areas of redness; calf pain or swelling, shortness of breath, chest pain; Any other concerns You may call the office at [phone]. If it is a medical emergency please call [phone]. Pending Studies at Discharge: Yes (Bone pathology) Stand-Alone Forms: [facility], Smoking Cessation Medications and DC Order Prescriptions: New acetaminophen [Tylenol Extra Strength] 500 mg Tablet 1,000 mg PO Q8H Qty: 30 0RF oxycodone 5 mg Tablet 5 - 10 mg PO Q4H PRN (Reason: pain) Qty: 18 0RF celecoxib [Celebrex] 200 mg capsule 200 mg PO BID 14 Days Qty: 28 0RF Continued lamotrigine [Lamictal] 150 mg Tablet 300 mg PO QAM atorvastatin [Lipitor] 10 mg Tablet 10 mg PO QAM ondansetron HCl 4 mg Tablet 4 mg PO Q6H PRN (Reason: Nausea) dextroamphetamine-amphetamine [Adderall] 10 mg Tablet 10 mg PO QPM Patient Comments: afternoon sertraline [Zoloft] 100 mg Tablet 200 mg PO QAM amlodipine [Norvasc] 10 mg Tablet 10 mg PO QAM pantoprazole 40 mg Tablet,Delayed Release (Dr/Ec) 40 mg PO QAM buspirone 10 mg Tablet 10 mg PO BID Patient Comments: takes both tablets QAM dextroamphetamine-amphetamine [Adderall] 20 mg Tablet 20 mg PO QAM hydroxyzine HCl 25 mg Tablet 25 mg PO TID PRN (Reason: Anxiety) glipizide 5 mg Tablet 5 mg PO TID Patient Comments: takes 15mg QAM aripiprazole [Abilify] 30 mg Tablet 30 mg PO QAM Discharge Orders: Discharge Order (Routine); Ordered 06/01/24 Ordered By: Rober Minaya Admission Data Admit Date/Time: 05/31/24 10:53 Attending Provider: Rober Minaya Admit Provider: Rober Minaya Primary Care Provider: Doc Marinelli Other Providers: Louis Shafer Other Interventions: Discharge Summary Assessment (RN) Last Done: 06/01/24 10:19
[2024-06-01] MEDS ORDERED: Scopolamine CHECK PATCH PLACEMENT SCH (16:00)
== END 2024-06-01 11:11 | disposition home or self-care (01) ==
LOC: ASU 05:16 → 3E 05:16